=== PATIENT | female | born 1970 | race Caucasian/White ===

== ENCOUNTER 2016-09-17 05:20 | Emergency (ER) | payer OTHER ==
[~2016-09-17] VITALS: Ht 170.2 cm; Wt 76.5 kg
[~2016-09-17 05:20] MED LIST: AMLO5TAB4 PO; CARAS PO; GABA300C16 PO; HYDR-762 PO; IBUP-1542 PO; LANT3I SC; LISI-525 PO; METO10TA92 PO; METO10TA96 PO; NOVO3I SC; ONDA4TAB14 PO; ONDA4TAB35 PO; ONDA8TAB14 PO; PANT40TA4 PO
[2016-09-17 05:25] VITALS: Ht 170.2 cm; Wt 76.5 kg
[2016-09-17] MEDS ORDERED: ONDANSETRON (ODT) 4 MG TAB ODT STA (05:36)
--- NOTE | 2016-09-17 05:40 | ERA ---
ER Documentation Chief Complaint Date/Time DATE: 09/17/16 TIME: 05:39 Chief Complaint L calf pain since 2200 09/16/16 HPI The patient is a 46-year-old female, presenting to the ER because of left calf pain for the last couple days, worse today. The pain is 10/10, worse with movement. She denies similar symptoms previously, denies fever, chills, neck pain, chest pain, dyspnea, abdominal pain, vomiting, dysuria, diarrhea. She does not smoke nor drink Past medical history: Diabetes mellitus, hypertension ROS All systems reviewed and are negative except as per history of present illness. Medications Home Meds Active Scripts Hydrocodone/Acetaminophen ([place] 10-325 Tablet) 1 Each Tablet, 1 TAB PO Q6H Y for PAIN, #7 TAB Prov:MARNI BAUTISTA MD 09/17/16 Metoclopramide* (Reglan*) 10 Mg Tablet, 10 MG PO Q6 Y for NAUSEA AND/OR VOMITING , #20 TAB Prov:SILVINA HAND NP 03/30/16 Ondansetron (Ondansetron Odt) 4 Mg Tab.rapdis, 4 MG PO Q8 Y for NAUSEA AND/OR VOMITING, #30 TAB Prov:SILVINA HAND NP 03/30/16 Ondansetron (Ondansetron Odt) 8 Mg Tab.rapdis, 8 MG PO Q6H Y for NAUSEA AND/OR VOMITING, #10 TAB Prov:RIANA JOINER MD 03/28/16 Ibuprofen* (Motrin*) 600 Mg Tab, 600 MG PO Q6, #12 TAB Prov:YOANNA CALI MD 01/03/16 Hydrocodone Bit-Acetaminophen* ([place]*) 10-325 Mg Tablet, 1 TAB PO Q6 Y for PAIN , #12 TAB Prov:YOANNA CALI MD 01/03/16 Metoclopramide Hcl* (Metoclopramide Hcl*) 10 Mg Tablet, 10 MG PO QID for 30 Days , TAB Prov:SCOOTER FREEMAN 11/17/15 Sucralfate* (Carafate* (Pediatric)) 1 Gm/10 Ml Susp, 1 GM PO QID for 30 Days Prov:SCOOTER FREEMAN 11/17/15 Pantoprazole* (Pantoprazole*) 40 Mg Tabec, 40 MG PO BID@06,18 for 30 Days Prov:PETESCOOTER 11/17/15 Lisinopril* (Zestril*) 20 Mg Tab, 20 MG PO DAILY for 30 Days, TAB Prov:MAURILIOSCOOTER LOPEZ 11/17/15 Insulin Glargine* (Lantus*) 100 Unit/Ml Soln, 20 UNIT SC QAM for 30 Days Prov:SCOOTER FREEMAN 11/17/15 Insulin Aspart* (Novolog Insulin Pen*) 100 Unit/Ml Soln, 4 UNIT SC WITH MEALS for 30 Days Prov:ALENSCOOTER Fitzpatrick 11/17/15 Insulin Aspart* (Novolog Insulin Pen*) 100 Unit/Ml Soln, 0 UNIT SC WITH MEALS BEDTIME for 30 Days Prov:SCOOTER FREEMAN 11/17/15 Amlodipine Besylate* (Norvasc*) 5 Mg Tab, 5 MG PO BID for 30 Days, TAB Prov:SCOOTER FREEMAN 11/17/15 Ondansetron Hcl* (Zofran* ODT) 4 mg -ODT Tab.disper, 4 MG PO Q6 Y for NAUSEA AND /OR VOMITING, #30 TAB Prov:SCOOTER FREEMAN 11/17/15 Hydrocodone Bit-Acetaminophen* ([place]*) 10-325 Mg Tablet, 1 TAB PO Q6 Y for PAIN , #12 TAB Prov:ANTONIO NIÑO MD 11/11/15 Reported Medications Gabapentin* (Gabapentin*) 300 Mg Capsule, 300 MG PO TID, #90 CAP 11/11/15 Allergies Allergies: Coded Allergies: No Known Allergy (Unverified , 11/12/15) PMhx/Soc History of Surgery: Yes (B Tubal Ligation,) Anesthesia Reaction: No Hx Neurological Disorder: No Hx Respiratory Disorders: No Hx Cardiac Disorders: No Hx Psychiatric Problems: No Hx Miscellaneous Medical Probl: Yes (DM2,DKA,R Foot Cellulitis,Pyelonephritis, Hemorrhagic Ovarian Cyst) Hx Alcohol Use: No Hx Substance Use: No Hx Tobacco Use: No Smoking Status: Never smoker Physical Exam Vitals Vital Signs Date Time Temp Pulse Resp B/P Pulse Ox O2 Delivery O2 Flow Rate FiO2 09/17/16 05:52 86 18 154/80 100 Room Air 09/17/16 05:25 98.3 91 18 177/84 100 Physical Exam Const: No acute distress. Head: Atraumatic. Eyes: Normal Conjunctiva. ENT: Normal External Ears, Nose and Mouth. Neck: Full range of motion. No meningismus. Resp: Clear to auscultation bilaterally. Cardio: Regular rate and rhythm, no murmurs. Abd: Soft, non distended, normal bowel sounds, non tender. Skin: No petechiae or rashes. Back: No midline or flank tenderness. Ext: Mild left calf tenderness, no erythema, no crepitus Neur: Awake and alert. No focal deficit Psych: Normal Mood and Affect. Results 24 hrs Laboratory Tests Test 09/17/16 05:45 Bedside Glucose 140mg/dL Current Medications Medications (Trade) Dose Ordered Sig/Sandrita Route PRN Reason Start Time Stop Time Status Last Admin Dose Admin Acetaminophen/ Hydrocodone Bitart ([place] (10/325)) 1 tab ONCE ONCE PO 09/17/16 06:00 09/17/16 06:01 DC 09/17/16 05:51 Ondansetron HCl (Zofran Odt) 4 mg ONCE STAT ODT 09/17/16 05:36 09/17/16 05:38 DC 09/17/16 05:51 Procedures/MDM MEDICAL MAKING DECISION: The patient is a 46-year-old female, presenting with acute left calf pain of unclear etiology. The differential diagnoses considered include but are not limited to DVT, muscle spasm, musculoskeletal pain, peripheral neuropathy Departure Diagnosis: Primary Impression: Pain of left leg Condition: Good Comments If the ultrasound is negative for DVT, she will be discharged with [place] for pain and advised to follow her doctor for further evaluation in about 2-3 days, sooner if needed and return if any concern MARNI BAUTISTA MD Sep 17, 2016 05:40
[2016-09-17] MEDS ORDERED: HYDR-902 PO (05:51)
[2016-09-17] MEDS ORDERED: HYDROCODONE/APAP (10/325) TAB PO ONE (06:00)
--- NOTE | 2016-09-17 06:25 | RADRPT ---
PROCEDURE: Ultrasound examination of the left lower extremity with Doppler. CLINICAL INDICATION: Left leg pain and swelling. TECHNIQUE: Multiple sonographic images of the left lower extremity veins were performed with jiménez scale and color Doppler. COMPARISON: None. FINDINGS: The left common femoral, superficial femoral and popliteal veins demonstrate normal color flow, wave forms, compression and response to augmentation. There is no evidence of deep venous thrombosis. IMPRESSION: No evidence of deep venous thrombosis within the left lower extremity. .Jonathan Morales MD, MD Date Time Electronically viewed and signed by .Jonathan Morales MD, MD on 09/17/2016 06:25 .T/
[2016-09-17 06:28] VITALS: BP 158/76; PULSE 80; RESP 16; TEMP 98.1
== END 2016-09-17 06:31 | disposition home or self-care (01) ==
LOC: E/R 05:20
DX: M79.605 Pain in left leg (principal); I10 Essential (primary) hypertension; E11.9 Type 2 diabetes mellitus without complications; Z79.4 Long term (current) use of insulin
CPT/HCPCS: 82962; 93971; Z7502; Z7610

== ENCOUNTER 2017-09-13 02:46 | Emergency (ER) | END 2017-09-13 07:51 | disposition home or self-care (01) ==

== ENCOUNTER 2017-09-20 20:49 | Emergency (ER) | END 2017-09-21 06:20 | disposition home or self-care (01) ==

== ENCOUNTER 2017-09-22 08:55 | Emergency (ER) | END 2017-09-22 18:23 | disposition home or self-care (01) ==